=== PATIENT | male | born 2005 ===

== ENCOUNTER 2024-02-24 21:52 | Emergency (ER) | payer MEDICAID, SELFPAY ==
[2024-02-24 21:56] VITALS: BP 108/72; PULSE 64; RESP 18; TEMP 37.1; O2SAT 95; BMI 25.4
[2024-02-24] MEDS: Lidocaine 4 % Cream KIT 1 APPL TOPICAL (23:01)
[2024-02-24] MEDS: cephALEXin 500 MG CAPSULE PO (23:01)
--- NOTE | 2024-02-24 23:25 | ED.SKABFB ---
HPI - Skin/Abscess/Foreign Bdy General Chief complaint: Skin/Abscess/Foreign Body Stated complaint: ? Abscess on R side of face near eye Time Seen by Provider: 02/24/24 22:27 Source: patient and family Mode of arrival: ambulatory Limitations: no limitations History of Present Illness ED Provider: PHAM HPI narrative: 19 yo male otherwise healthy here with R pimple that started on R pentecostal forehead area since yesterday. He did try to squeeze it but no drainage and it has just gotten bigger. After he squeezed it there was more pain and swelling around the R eye. He has no vision changes the R side of the face hurts. He has not been confused or had a fever MD complaint: abscess/boil Onset (ago): day(s) (1) Tetanus up to date: yes Location: face Severity: moderate Quality: aching Pain Consistency: constant Relieving factors: none Exacerbating factors: palpation Context: none Associated symptoms: denies other symptoms Treatments prior to arrival: attempted to drain pus at home Related Data Previous Rx's ?Medication ?Instructions ?Recorded cephalexin 500 mg capsule 500 mg PO QID 7 days #28 caps 02/24/24 Allergies Allergy/AdvReac Type Severity Reaction Status Date / Time No Known Allergies Allergy Verified 02/24/24 21:59 Review of Systems Review of Systems: Constitutional : No Fever, No Chills ENT/Mouth : No sore throat, No Rhinorrhea Eyes: No Eye Pain, No Swelling, No Redness Cardiovascular : No Chest Pain, No SOB Respiratory : No Cough, No Sputum Gastrointestinal : No Nausea, No Vomiting, No Diarrhea, No abdominal Pain Genitourinary : No Dysuria, No Hematuria Musculoskeletal : No joint pain, No Myalgias, No Joint Swelling Skin : pos Skin Lesions, positive skin rash Neuro : No Weakness, No Numbness, No Headache Psych : No Anxiety, No Depression All other systems reviewed and are negative [facility] Past Medical History Attestation statement: The following information was validated with the patient. Source: old records reviewed Medical History (Updated 02/24/24 @ 23:31 by Destinee Milian DO) No pertinent past medical history Social History Social History (Updated 02/24/24 @ 23:31 by Destinee Milian DO) Patient Tobacco Use Status: Never used Tobacco Physical Exam Vital Signs: Vital Signs: Last Vital Signs Temp 98.8 F 02/24/24 21:56 Pulse 64 02/24/24 21:56 Resp 18 02/24/24 21:56 BP 108/72 02/24/24 21:56 Pulse Ox 95 02/24/24 21:56 O2 Del Method Room Air 02/24/24 21:56 BMI result Body Mass Index 25.4 Appearance: Alert. Oriented X3. No acute distress. Eyes: Pupils equal, round and reactive to light. ENT: Pharynx normal. no sublingual or submandibular swelling - localized 2.5cm fluctuance abscess R pentecostal area, mild swelling around R eye but no vision changes and no proptosis as well as no pain with EOM Neck: Normal inspection. Neck supple. CVS: Normal heart rate and rhythm. Pulses normal. Respiratory: No respiratory distress. Breath sounds normal. Abdomen: Soft and nontender. Skin: Skin warm and dry. Normal skin color. Normal skin turgor. Extremities: No lower extremity edema. No calf ttp Neuro: Oriented X 3. No motor deficit. No sensory deficit. Medications Administered Discontinued Medications Generic Name Dose Route Start Last Admin Trade Name Freq PRN Reason Stop Dose Admin Cephalexin HCl 500 mg 02/24/24 22:57 02/24/24 23:01 Cephalexin 500 Mg Capsule PO 02/24/24 22:58 500 mg ONCE ONE Administration Lidocaine HCl 1 appl 02/24/24 22:57 02/24/24 23:01 Lidocaine 4 % Cream Kit TOPICAL 02/24/24 22:58 1 appl ONCE ONE Administration Protocol Medical Decision Making Medical Decision Making MDM Narrative: 19 yo male with localized abscess to R side of the head mild swelling inferior periorbital area that started after attempts at drainage at home - he is not confused, has no fever, no meningeal signs - EOM intact with no pain or proptosis - suspect local reaction 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 Drain and PO abx no hx of MRSA Differential Diagnosis Differential Diagnoses: The differential diagnosis associated with the presentation includes abscess Independent Historian Clinical information obtained from an independent historian. History obtained from or confirmed by: Parent Prescription Management I considered prescription management with: Antibiotic Procedures Abscess I/D Site: face Side (if applicable): right Local Anesthetic: other anesthetic Technique: needle aspiration Amount of fluid expressed (mL): 3 Sent for culture/gram staining?: No Irrigation: No Packing used?: none Discharge Plan Discharge Clinical Impression: Abscess of skin or subcutaneous tissue Qualifiers: Site of cutaneous abscess: face Qualified Code(s): L02.01 - Cutaneous abscess of face Patient Disposition: Home, Self-Care Instructions: Abscess (ED) Additional Instructions: return for any worsening pain, fevers, change in vision, confusion, vomiting or any other concerns On a cephalosporin?antibiotic, softer bowel movements are to be expected. Call your provider if you move your bowels more than 4 times a day, your bowel movements are almost all liquid, or you get a rash.?? Prescriptions: New cephalexin 500 mg capsule 500 mg PO QID 7 Days Qty: 28 0RF Print Language: Dominican
[2024-02-24 23:59] VITALS: BP 108/72; PULSE 64; RESP 18; TEMP 37.1; O2SAT 95
== END 2024-02-24 23:59 | disposition home or self-care (01) ==
PROVIDERS: Emergency Provider Emergency Medicine
DX: L02.01 Cutaneous abscess of face (principal)
CPT/HCPCS: 10160; 99283; 99284